=== PATIENT | female | born 1985 ===

== ENCOUNTER 2018-07-12 15:45 | Emergency (ER) | payer SELFPAY ==
--- NOTE | 2018-07-12 16:25 | EDM.PDOC ---
ED HPI GENERAL MEDICAL PROBLEM - General Chief Complaint: General Stated Complaint: CHEST PAIN/NAUSEA X 3 DAYS Time Seen by Provider: 07/12/18 16:12 Source of Information: Reports: Patient History Limitations: Reports: No Limitations - History of Present Illness INITIAL COMMENTS - FREE TEXT/NARRATIVE: 32-year-old female presents to the ED with diffuse right anterior chest pain which he appreciates is worse upon touching. Known injuries. No recent workouts or injuries to the pectoralis muscle. Denies cough or sputum production. Intermittent headaches which start on the frontal part of her scalp and radiate posteriorly in the distribution of the occipitofrontal nerve. This is associated with nausea intermittently. No recent upper respiratory tract infections. No known abdominal problems or surgeries. Onset: Gradual Onset Date: 07/09/18 Duration: Day(s):, Getting Worse (3 days) Location: Reports: Chest Quality: Reports: Ache (Right anterior chest pain which she can localize quite well.), Sharp, Stabbing Severity: Moderate (5 out of 10) Improves with: Reports: Rest Worsens with: Reports: Movement Context: Denies: Activity, Exercise (Movement and touch. No unnecessary worse with breathing. I.e. no pleuritic component to the pain), Lifting, Sick Contact , Trauma, Other Associated Symptoms: Reports: Chest Pain, Nausea/Vomiting. 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: Reports: Acetaminophen Right Chest Pain Score (Numeric/FACES): 0 - Related Data Allergies Allergy/AdvReac Type Severity Reaction Status Date / Time No Known Allergies Allergy Verified 07/12/18 15:54 Home Meds: Home Meds Diclofenac Sodium [Voltaren] 50 mg PO BID #20 tab.ec 07/12/18 [Rx] Multivitamin [Multivitamins] 1 tab PO DAILY 07/12/18 [History] metFORMIN [Glucophage XR] 500 mg PO BID 07/12/18 [History] predniSONE [Deltasone] 20 mg PO ASDIRECTED #15 tablet 07/12/18 [Rx] 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 Associated with polycystic ovarian disease) Social & Family History - Tobacco Use Smoking Status *Q: Never Smoker Second Hand Smoke Exposure: No - Caffeine Use Caffeine Use: Reports: None - Recreational Drug Use Recreational Drug Use: No ED ROS GENERAL - Review of Systems Review Of Systems: See Below Constitutional: Reports: Malaise, Fatigue. Denies: Fever, Chills, Night Sweats , Diaphoresis, Decreased Appetite, Weight Loss HEENT: Reports: No Symptoms Respiratory: Reports: Other. Denies: Shortness of Breath, Wheezing, Pleuritic Chest Pain, Cough, Sputum (Chest pain without a pleuritic component) Cardiovascular: Reports: Chest Pain. Denies: Blood Pressure Problem (See history of present illness), Claudication, Dyspnea on Exertion, Edema, Lightheadedness, Orthopnea Endocrine: Reports: Fatigue GI/Abdominal: Reports: Nausea : Reports: Other (Intermittent nausea without vomiting. Usually associated with headache. History of menses 2 days ago.) Musculoskeletal: Denies: Neck Pain, Shoulder Pain, Arm Pain, Back Pain, Hand Pain, Leg Pain, Foot Pain, Joint Pain, Joint Swelling Skin: Reports: No Symptoms Neurological: Reports: No Symptoms Psychiatric: Reports: No Symptoms Hematologic/Lymphatic: Reports: No Symptoms Immunologic: Reports: No Symptoms ED EXAM, GENERAL - Physical Exam Exam: See Below Exam Limited By: No Limitations General Appearance: Alert, WD/WN, No Apparent Distress, Other (Vital signs are normal. Pulse of 54 and sinus cassettes are 99% on room air.) Eye Exam: Bilateral Eye: Normal Inspection, PERRL Respiratory/Chest: No Respiratory Distress, Lungs Clear, Normal Breath Sounds, No Accessory Muscle Use, Other (Patient is markedly tender to palpation ribs 2345 and 6 on the right side ribs 45 and 6 on the left side.) Cardiovascular: Normal Peripheral Pulses, Regular Rate, Rhythm, No Edema, No Gallop, No Murmur, No Rub Peripheral Pulses: 3+: Posterior Tibial (L), Posterior Tibial (R), Dorsalis Pedis (L), Dorsalis Pedis (R) GI/Abdominal: Normal Bowel Sounds, Soft, Non-Tender, No Organomegaly, No Abnormal Bruit, No Mass, Pelvis Stable Back Exam: Normal Inspection, Full Range of Motion, Other. No: CVA Tenderness ( L), CVA Tenderness (R) Extremities: Normal Inspection, Normal Range of Motion (No rib head tenderness.) , Non-Tender, Normal Capillary Refill Neurological: Alert, Oriented, CN II-XII Intact, Normal Cognition Psychiatric: Normal Affect Skin Exam: Warm, Dry, Intact, Normal Color, No Rash Course - Vital Signs Last Recorded V/S: Last Vital Signs Temp 36.8 C 07/12/18 15:51 Pulse 54 L 07/12/18 15:51 Resp 16 07/12/18 15:51 BP 134/80 07/12/18 15:51 Pulse Ox 99 07/12/18 15:51 - Orders/Labs/Meds Orders: Active Orders 24 hr Category Date Time Status Chest 1V Frontal [CR] Stat Exams 07/12/18 16:20 Taken Labs: Laboratory Tests 07/12/18 Range/Units 16:32 Urine HCG, Qual Negative (NEGATIVE) Meds: Medications Discontinued Medications Generic Name Dose Route Start Last Admin Trade Name Jeanette PRN Reason Stop Dose Admin Dexamethasone 8 mg 07/12/18 17:38 Dexamethasone PO 07/12/18 17:39 ONETIME ONE Naproxen 500 mg 07/12/18 17:38 Naprosyn PO 07/12/18 17:39 ONETIME ONE - Radiology Interpretation Free Text/Narrative:: 32-year-old female presents to the ED with diffuse right anterior chest pain 3 days. No known injuries to this area. No recent upper respiratory tract infections. Denies any associated cough or sputum production fever or chills. Examination reveals marked tenderness of the ribs 2-6 on the right side in the midclavicular line and ribs 3-6 on the left side but not near as severe. Lungs are clear to stage percussion. Vital signs are normal. Clinically she has a chest wall pain syndrome more of a periostitis. One view chest x-ray will be obtained. - Re-Assessments/Exams Free Text/Narrative Re-Assessment/Exam: 07/12/18 17:20 urine hCG is negative. Will go ahead with the chest x-ray as planned. 07/12/18 17:35 one view chest x-ray is been completed and reveals no evidence of any abnormality is of the underlying lung or ribs.Given Naproxen 500mg po with Dexamethasone 8 mg po. . I will place her on Voltaren 50 mg twice a day for 10 days and a short course of prednisone 20 mg twice a day for 5 days and then once daily in the morning for another 5 days as well to reduce pain and inflammation chest wall. Her personal care physician if any further problems occur or you're not completely better in 2 weeks time Departure - Departure Time of Disposition: 17:38 Disposition: Home, Self-Care 01 Condition: Fair Clinical Impression: Anterior chest wall pain - Discharge Information *PRESCRIPTION DRUG MONITORING PROGRAM REVIEWED*: Not Applicable *COPY OF PRESCRIPTION DRUG MONITORING REPORT IN PATIENT KENDALL: Not Applicable Prescriptions: Diclofenac Sodium [Voltaren] 50 mg PO BID #20 tab.ec predniSONE [Deltasone] 20 mg PO ASDIRECTED #15 tablet Instructions: Chest Wall Pain, [id number] Referrals: PCP,None [Primary Care Provider] - Forms: ED Department Discharge Additional Instructions: Evaluation the emergency room today in regards to development of diffuse right sided chest pain which is chest wall pain on examination ribs 345 and 6 and 7 are very tender to touch on the right side and 345 and 6 were very tender on the left side in the midclavicular line. Chest x-ray done shows no abnormalities of the underlying lung or the ribs themselves. You have a viral infection of the chest wall involving the lining of the rib called the periosteum. This usually takes anywhere from 2-5 weeks to go away completely. Treatment was started in the ED with dexamethasone 8 mg and naproxen 500 mg by mouth. Need to fill prescription tomorrow for Voltaren to be taken twice daily 50 mg with food and Deltasone 20 mg in the morning with breakfast and with supper for 5 days then once in the morning only for another 5 days to relieve pain and inflammation. Expect gradual improvement over the next 72 hours. Even after 10 days you may still have some discomfort in the chest wall for which she could take either Advil/Motrin or Aleve 2 tablets every 8 hours. Follow-up with personal care physician if any further problem's occur. - My Orders Last 24 Hours: My Active Orders 07/12/18 16:20 Chest 1V Frontal [CR] Stat - Assessment/Plan Last 24 Hours: My Active Orders 07/12/18 16:20 Chest 1V Frontal [CR] Stat
[2018-07-12] MEDS ORDERED: Dexamethasone 4 MG Tab PO ONE (17:38)
[2018-07-12] MEDS ORDERED: Naproxen 500 MG Tab PO ONE (17:38)
--- NOTE | 2018-07-13 11:01 | CR ---
Chest: Portable view of the chest was obtained. Comparison: No previous chest x-ray. Heart size and mediastinum are within normal limits for portable technique. Lungs are clear. Bony structures are grossly intact. Impression: 1. Nothing acute is appreciated on portable chest x-ray. Diagnostic code #1
== END 2018-07-12 18:12 | disposition home or self-care (01) ==
LOC: JD.ED 15:45
DX: R07.89 Other chest pain (principal); Z79.84 Long term (current) use of oral hypoglycemic drugs
CPT/HCPCS: 71045; 81025; 99284; A9270; J8540

== ENCOUNTER 2018-07-13 18:13 | Emergency (ER) | payer MEDICAID ==
[2018-07-13] MEDS ORDERED: Sodium Chloride 0.9% 10 ML Syringe FLUSH PRN (18:32)
[2018-07-13] MEDS ORDERED: Sodium Chloride 0.9% 1,000 ML IV SCH (18:45)
[2018-07-13] MEDS ORDERED: Famotidine 20 MG/2 ML SDV IVPUSH ONE (19:17)
[2018-07-13] MEDS ORDERED: Ondansetron 4 MG/2 ML SDV IVPUSH ONE (19:17)
[2018-07-13] MEDS ORDERED: Sodium Chloride 0.9% 1,000 ML IV ONE (20:00)
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
== END 2018-07-13 22:57 | disposition home or self-care (01) ==
LOC: JD.ED 18:13
DX: T39.312A Poisoning by propionic acid derivatives, intentional self-harm, initial encounter (principal); R11.2 Nausea with vomiting, unspecified; F32.9 Major depressive disorder, single episode, unspecified; Z79.899 Other long term (current) drug therapy
CPT/HCPCS: 36415; 80048; 80053; 80306; 81025; 83690; 85025; 96361; 96374; 96375; 99284; G0480; J2405; J3490; J7040